=== PATIENT | female | born 1950 | race African-American/Black ===

== ENCOUNTER → 2016-08-05 | Outpatient (CLI) | payer MEDICARE ==
[~2016-08-05] MED LIST: AMIT50TA PO; DIAZ5TAB4 PO; GABA600T2 PO; OXYC-244 PO; TIZA4TAB PO
--- NOTE | 2016-08-05 09:50 | RAD ---
EXAM: Chest 2 views. HISTORY: Chest pain and wheezing. COMPARISON: None. FINDINGS: Frontal and lateral views of the chest are obtained. There are no confluent infiltrates. There is no pneumothorax or pleural effusion. The heart is not enlarged. IMPRESSION: 1. No confluent infiltrates.
--- NOTE | 2016-08-05 15:39 | CARD ---
APPROVED REPORT EXAM: Two-dimensional and M-mode echocardiogram with Doppler and color Doppler. Other Information Quality : GoodHR: 67bpm Rhythm : NSR INDICATION Dyspnea 2D DIMENSIONS RVDd1.9 (2.9-3.5cm)Left Atrium(2D)3.1 (1.6-4.0cm) IVSd0.7 (0.7-1.1cm)Aortic Root(2D)2.7 (2.0-3.7cm) LVDd4.2 (3.9-5.9cm)LVOT Diameter2.0 (1.8-2.4cm) PWd0.9 (0.7-1.1cm)LVDs3.0 (2.5-4.0cm) FS (%) 29.5 %SV45.9 ml LVEF(%)56.9 (>50%) Aortic Valve AoV Peak Nicolás.161.2cm/sAoV VTI32.3cm AO Peak GR.10.4mmHgLVOT Peak Nicolás.112.2cm/s AO Mean GR.5mmHgAVA (VMAX)2.27cm2 Mitral Valve MV E Iwlhqvwl07.5cm/sMV E Peak Gr.4mmHg MV DECEL [id number] A Agykhumr56.8cm/s MV E Mean Gr.2mmHgE/A Ratio1.0 MV A Tudrdhsu315ac Pulmonary Valve PV Peak Zbbqvuue832.4cm/s Tricuspid Valve TR P. Lefvhrkg750mk/sTR Peak Gr.24mmHg Pulmonary Vein S1 Ntwceldk81.4cm/sD2 Hbpdfusn60.5cm/s PVa [id number] LEFT VENTRICLE The left ventricle is normal size. There is normal left ventricular wall thickness. The left ventricu lar systolic function is normal. The Ejection Fraction is 55-60%. There is normal LV segmental wall m otion. The left ventricular diastolic function and filling is normal for age. RIGHT VENTRICLE The right ventricle is normal size. There is normal right ventricular wall thickness. The right ventr icular systolic function is normal. ATRIA The left atrium size is normal. The right atrium size is normal. The interatrial septum is intact wit h no evidence for an atrial septal defect or patent foramen ovale as noted on 2-D or Doppler imaging. AORTIC VALVE The aortic valve is mildly sclerotic. Doppler and Color Flow revealed no significant aortic regurgita tion. There is no significant aortic valvular stenosis. MITRAL VALVE Mitral annular calcification is mild. The mitral valve leaflets are thickened. There is no evidence o f mitral valve prolapse. There is no mitral valve stenosis. Doppler and Color Flow revealed trace leon ral regurgitation. TRICUSPID VALVE Doppler and Color Flow revealed trace tricuspid regurgitation. The pulmonary artery systolic pressure is estimated at 29 mmHg. There is no pulmonary hypertension. PULMONIC VALVE The pulmonary valve is normal in structure and function. Doppler and Color Flow revealed no pulmonic valvular regurgitation. There is no pulmonic valvular stenosis. GREAT VESSELS The aortic root is normal in size. The ascending aorta is normal in size. The pulmonary artery is nor mal. The IVC is normal in size and collapses >50% with inspiration. PERICARDIAL EFFUSION There is no evidence of significant pericardial effusion. Critical Notification Critical Value: No <Conclusion> The left ventricular systolic function is normal. The Ejection Fraction is 55-60%. There is normal LV segmental wall motion. Trace mitral regurgitation. Trace tricuspid regurgitation. The pulmonary artery systolic pressure is estimated at 29 mmHg. There is no evidence of significant pericardial effusion.
== END | disposition home or self-care (01) ==
LOC: ECHO 07:56
PROVIDERS: ATTEND Family Medicine
DX: I35.8 Other nonrheumatic aortic valve disorders (principal)
CPT/HCPCS: 71020; 93306

== ENCOUNTER → 2016-11-15 | Outpatient (CLI) | payer BC ==
[~2016-11-15] MED LIST changes: -OXYC-244 PO; +OXYC-327 PO
--- NOTE | 2016-11-15 17:30 | RAD ---
Indication injury one week previously. Rib pain. Films targeted to left and right ribs were obtained. Films of left ribs appear unremarkable. Films of right ribs also appear unremarkable. Calcified hilar lymph nodes are noted in each lung. IMPRESSION: Negative plain films of the ribs
== END | disposition home or self-care (01) ==
LOC: RAD 16:26
PROVIDERS: ATTEND Physician Assistant
DX: R07.81 Pleurodynia (principal); J98.4 Other disorders of lung; R07.1 Chest pain on breathing; W19.XXXA Unspecified fall, initial encounter; Y93.89 Activity, other specified; Y92.89 Other specified places as the place of occurrence of the external cause; Y99.8 Other external cause status
CPT/HCPCS: 71110

== ENCOUNTER → 2016-12-23 | Outpatient (CLI) | payer BC ==
[~2016-12-23] MED LIST changes: +IOHEXOL 240 MG/ML 50ML VIAL. PO ONE; +IOHEXOL 300 MG/ML 75 ML VIAL IV ONE
--- NOTE | 2016-12-23 16:28 | RAD ---
CT abdomen/pelvis with contrast 12/23/2016 at 1550 hours Indication: Upper abdominal pain. Comparison: None available Technique: Multiple axial CT images of the abdomen and pelvis were obtained after the administration of intravenous contrast. 75 mL's of Omnipaque 300 were administered. Coronal and sagittal reformats are provided. Oral contrast was administered. Findings: Lung bases are clear. Heart size is within normal limits. The liver enhances homogenously without evidence for a focal mass lesion. The spleen is normal. Bilateral adrenal glands are normal. The gallbladder is present without adjacent inflammatory changes. Pancreas is normal in appearance. No pancreatic ductal dilatation. No peripancreatic inflammatory changes. No intrahepatic or extrahepatic biliary ductal dilatation. The abdominal aorta is normal in course and caliber. IVC is patent. There are no enlarged lymph nodes in the abdomen or pelvis. There is no free intraperitoneal air. No free fluid within the abdomen or pelvis. The kidneys enhance symmetrically. There is no hydronephrosis. No contour deforming renal mass. Small and large bowel are normal in caliber. Appendix is not definitively visualized, however no inflammatory changes are noted in the right lower quadrant. No pericolonic inflammatory changes are present. Mild colonic diverticulosis without inflammatory changes to suggest diverticulitis. The urinary bladder is normal in appearance. No adnexal masses are identified. No suspicious osseous lesions are identified. Minimal anterolisthesis of L4 on L5, likely in a degenerative basis secondary to facet arthropathy. Impression: 1. No acute abnormality in the abdomen or pelvis. 2. Mild colonic diverticulosis without inflammatory changes to suggest diverticulitis. 3. Minimal anterolisthesis of L4 on L5, likely in a degenerative basis secondary to facet arthropathy. PQRS Compliance Statement: One or more of the following individualized dose reduction techniques were utilized for this examination: 1. Automated exposure control 2. Adjustment of the mA and/or kV according to patient size 3. Use of iterative reconstruction technique
== END | disposition home or self-care (01) ==
LOC: CT 14:11
PROVIDERS: ATTEND Family Medicine
DX: R10.10 Upper abdominal pain, unspecified (principal)
CPT/HCPCS: 74177; Q9966; Q9967

== ENCOUNTER → 2017-07-06 | Outpatient (CLI) | payer BC | END | disposition home or self-care (01) | LOC: KCIC DEXA 14:29 | DX: Z13.820 Encounter for screening for osteoporosis (principal); Z78.0 Asymptomatic menopausal state | CPT/HCPCS: 77080 ==

== ENCOUNTER → 2018-07-17 | Outpatient (CLI) | payer BC ==
[~2018-07-17] MED LIST changes: -GABA600T2 PO; +GABA600T7 PO; -IOHEXOL 240 MG/ML 50ML VIAL. PO ONE; -IOHEXOL 300 MG/ML 75 ML VIAL IV ONE; -OXYC-327 PO; +OXYC1TAB19 PO; -TIZA4TAB PO; +TIZA4TAB2 PO
--- NOTE | 2018-07-17 15:51 | RAD ---
DATE: 07/17/2018 EXAM: MAMMO YAZMIN SCREENING BILATERAL HISTORY: Routine screening COMPARISON: 12/12/2011, 12/19/2012, 01/16/2014, 04/10/2017 mammographic exams This study was interpreted with the benefit of Computerized Aided Detection (CAD). Breast Density: SCATTERED The breast parenchyma shows scattered fibroglandular densities. Breast parenchyma level B. FINDINGS: CC and MLO images of each breast were obtained. Tomosynthesis performed. Benign calcifications are present. No masses or distortion in the interval. IMPRESSION: Benign findings. BI-RADS CATEGORY: 2 BENIGN FINDING(S) RECOMMENDED FOLLOW-UP: 12M 12 MONTH FOLLOW-UP PQRS compliance statement: Patient information was entered into a reminder system with a target due date in one year for the next mammogram. Mammography is a sensitive method for finding small breast cancers, but it does not detect them all and is not a substitute for careful clinical examination. A negative mammogram does not negate a clinically suspicious finding and should not result in delay in biopsying a clinically suspicious abnormality. "Our facility is accredited by the [employer] Mammography Program."
== END | disposition home or self-care (01) ==
LOC: MAMMO 10:53
PROVIDERS: ATTEND Family Medicine
DX: Z12.31 Encounter for screening mammogram for malignant neoplasm of breast (principal)
CPT/HCPCS: 77063; 77067

== ENCOUNTER → 2018-10-01 | Outpatient (CLI) | payer BC ==
[~2018-10-01] MED LIST changes: +TIZA4TAB PO; -TIZA4TAB2 PO
--- NOTE | 2018-10-01 11:38 | KCIC ---
Left breast ultrasound: Reason for examination: Left breast lump with scab on the skin surface after picking at the skin. Ultrasound examination was performed in the area of clinical concern and at the left axilla. In the 11:30 position 16.5 cm from the nipple, there is a 9.9 x 4.4 mm hypoechoic lesion with echogenicity centrally. This appears to lie in the skin and would be consistent with a sebaceous cyst or ingrown hair follicle. No other focal breast lesions are seen. No abnormal appearing lymph nodes are seen in the left axilla. IMPRESSION: 9.9 mm lesion probably representing a sebaceous cyst or ingrown hair follicle at the 11:30 corresponding to the area of clinical concern. No other focal abnormality seen. Recommend further evaluation by dermatology. BI-RADS Category 2: Benign. "Our facility is accredited by the [employer] Mammography [employer]." This patient's information has been entered into a reminder system for the patient to be notified with the results of her examination and a target date for the next mammogram. Electronically signed by: Magda Cristina MD (10/01/2018 11:36 AM) [id number]
== END | disposition home or self-care (01) ==
LOC: KCIC US 10:25
PROVIDERS: ATTEND Internal Medicine
DX: N64.9 Disorder of breast, unspecified (principal)
CPT/HCPCS: 76641

== ENCOUNTER → 2019-12-31 | Outpatient (CLI) | payer BC ==
[~2019-12-31] MED LIST changes: +BARIUM SULFATE 40% (APPLE) 148 GM PWD. PO ONE; -TIZA4TAB PO; +TIZA4TAB2 PO
--- NOTE | 2019-12-31 14:52 | RAD ---
EXAM: Modified barium swallow. HISTORY: Dysphagia. FINDINGS: Barium contrast material was administered orally and multiple consistencies under the direction of speech pathology, and followed in its course during swallowing with video fluoroscopy. A fluoroscopic image and multiple videofluoroscopic clips were obtained. Fluoroscopy time 3.0 minutes. The radiologist was present for the entire imaging procedure. Flash laryngeal penetration was noted with liquid consistencies. There was no aspiration. Images of the more distal esophagus reveal moderate dilatation of the lower third of the esophagus. There was some delayed relaxation of the lower esophageal sphincter. On a few occasions, this lead to retention of material to the cervical esophagus. No persistent retention was visualized. IMPRESSION: 1. Dilatation of the lower esophagus with mildly delayed relaxation of the lower esophageal sphincter is consistent with mild achalasia. Gastroenterologic follow-up is suggested. 2. Flash laryngeal penetration without clear aspiration. Refer to the full report by speech pathology for more detail. Electronically signed by: Jayme Handy MD (12/31/2019 2:49 PM) [id number]
== END | disposition home or self-care (01) ==
LOC: RAD 13:24
PROVIDERS: ATTEND Family Medicine
DX: R13.19 Other dysphagia (principal); K59.8 Other specified functional intestinal disorders
CPT/HCPCS: 74230; 92526-GN; 92611-GN

== ENCOUNTER → 2020-04-07 | Outpatient (CLI) | payer BC ==
[~2020-04-07] MED LIST changes: -BARIUM SULFATE 40% (APPLE) 148 GM PWD. PO ONE
--- NOTE | 2020-04-07 17:15 | RAD ---
BILATERAL SCREENING MAMMOGRAM, 3-D History: Routine screening. Comparison: 07/17/2018, 04/10/2017, 01/20/2015, 01/16/2014. Technique: MLO and CC digital tomosynthesis (3D) images obtained. Radiologist reviewed these images on dedicated workstation. Findings: Breast Tissue Density B : There are scattered areas of fibroglandular density. There are no dominant masses, suspicious microcalcifications, or architectural distortion. IMPRESSION: No mammographic evidence of malignancy. Recommend routine screening. BI-RADS category 1: Negative. The images were reviewed with computer-aided detection. Patient information is entered into reminder system with a target due date for the next screening mammogram. Mammography is the most sensitive method for finding small breast cancers, but it does not detect them all and is not a substitute for careful clinical examination. A negative mammogram does not negate a clinically suspicious finding and should not result in delay in biopsying a clinically suspicious abnormality. "Our facility is accredited by the [employer] Mammography Program." Electronically signed by: Marcus Sutherland MD (04/07/2020 5:12 PM) [id number]
== END ==
LOC: MAMMO 11:10
PROVIDERS: ATTEND Family Medicine
DX: Z12.31 Encounter for screening mammogram for malignant neoplasm of breast (principal)
CPT/HCPCS: 77063; 77067

== ENCOUNTER 2020-08-07 16:20 | Emergency (ER) | payer BC ==
[~2020-08-07] VITALS: Ht 157.5 cm; Wt 225.0 kg
[2020-08-07] MEDS ORDERED: IV NORMAL SALINE 1000ML BAG 1,000 ML IV ONE (18:15)
--- NOTE | 2020-08-07 18:17 | PHYS DOC ---
General Adult EDM: Chief Complaint: OTHER COMPLAINTS HPI: HPI: Patient is a 70 year old female with a past medical history of fibromyalgia, hypertension, hyperlipidemia presents with the chief complaint of-- Left sided headache RIght shoulder pain. Insomnia Patient recently found out of a family member passing of a stroke Patient concern about stroke in relation to her left sided headache. Patient states she recently detoxed herself off of her fibromyalgia medications that she has been taking since the . Patient states she normally sleeps 7-10 hours a day. Over the last few nights she has only been able to sleep 3-4 hours a night. Patient without chest pain or shortness of breath. No focal weakness or slurred speech. Review of Systems: Review of Systems: Constitutional: Denies fever or chills. [] Eyes: Denies change in visual acuity. [] HENT: Denies nasal congestion or sore throat. [] Respiratory: Denies cough or shortness of breath. [] Cardiovascular: Denies chest pain or edema. [] GI: Denies abdominal pain, nausea, vomiting, bloody stools or diarrhea. [] : Denies dysuria. [] Musculoskeletal: Denies back pain or joint pain. [Positive SHOULDER PAIN] Integument: Denies rash. [] Neurologic: Positive headache, focal weakness or sensory changes. [Positive insomnia] Endocrine: Denies polyuria or polydipsia. [] Lymphatic: Denies swollen glands. [] Psychiatric: Denies depression or anxiety. [] Heart Score: Risk Factors: Risk Factors: DM, Current or recent (<one month) smoker, HTN, HLP, family history of CAD, obesity. Risk Scores: Score 0 - 3: 2.5% MACE over next 6 weeks - Discharge Home Score 4 - 6: 20.3% MACE over next 6 weeks - Admit for Clinical Observation Score 7 - 10: 72.7% MACE over next 6 weeks - Early Invasive Strategies Current Medications: Current Medications Medications (Trade) Dose Ordered Sig/Mona Start Time Stop Time Status Last Admin Dose Admin Sodium Chloride 1,000 ml @ 1,000 mls/hr 1X ONCE 08/07/20 18:15 08/07/20 19:14 Allergies: Allergies: Allergies Coded Allergies Type Severity Reaction Last Updated Verified Vvonxuv-Xbp-Mse Reductase Inhibitor Allergy Intermediate 03/28/16 Yes Physical Exam: PE: Constitutional: Well developed, well nourished, no acute distress, non-toxic appearance. [] HENT: Normocephalic, atraumatic, bilateral external ears normal, oropharynx moist, no oral exudates, nose normal. [] Eyes: PERRLA, EOMI, conjunctiva normal, no discharge. [] Neck: Normal range of motion, no tenderness, supple, no stridor. [] Cardiovascular:Heart rate regular rhythm, no murmur [] Lungs & Thorax: Bilateral breath sounds clear to auscultation [] Abdomen: Bowel sounds normal, soft, no tenderness, no masses, no pulsatile masses. [] Skin: Warm, dry, no erythema, no rash. [] Back: No tenderness, no CVA tenderness. [] Extremities: No tenderness, no cyanosis, no clubbing, ROM intact, no edema. [] Neurologic: Alert and oriented X 3, normal motor function, normal sensory function, no focal deficits noted. [] Psychologic: Affect normal, judgement normal, mood normal. [] Current Patient Data: Vital Signs: Vital Signs Date Time Temp Pulse Resp B/P (MAP) Pulse Ox O2 Delivery O2 Flow Rate FiO2 08/07/20 16:31 97.2 94 22 150/78 (102) 99 Room Air 97.2 EKG: EKG: [] Radiology/Procedures: Radiology/Procedures: [] Impression: 1. No acute intracranial hemorrhage. 2. Scattered regions of low attenuation within the white matter. Non-specific in nature but frequently secondary to chronic small vessel ischemic disease. 3. Prominence of ventricles and sulci which is frequently secondary to age related volume loss. Course & Med Decision Making: Course & Med Decision Making Pertinent Labs and Imaging studies reviewed. (See chart for details) [] Patient was evaluated for chief complaint. Work-up consisted of laboratory analysis and radiologic imaging. Results reviewed and discussed with patient and daughter. Labs within normal limits creatinine slightly elevated at 1.2 CT imaging shows no acute hemorrhage areas with small vessel disease. Treatment included 1 L normal saline. Patient was discharged home with instructions to follow-up with primary care physician. Bonnie Disclaimer: Bonnie Disclaimer: This electronic medical record was generated, in whole or in part, using a voice recognition dictation system. Departure Departure Impression: Primary Impression: Dehydration Additional Impressions: Insomnia Headache Disposition: 01 DC HOME SELF CARE/HOMELESS Condition: STABLE Referrals: SEUN LINDQUIST MD (PCP) Patient Instructions: Dehydration, Adult, General Headache Without Cause, Insomnia JENIFER ABBASI I DO Aug 07, 2020 18:17
[2020-08-07 18:31] LABS: BASO # 0.1 x10^3/uL (0.0-0.2); BASO % 1 % (0-3); EOS # 0.3 x10^3/uL (0.0-0.7); EOS % 5 % (0-3); HEMATOCRIT 37.6 % (36.0-47.0); HEMOGLOBIN 12.9 g/dL (12.0-15.5); LYMPH # 2.4 x10^3/uL (1.0-4.8); LYMPH % 31 % (24-48); MEAN CORPUSCULAR HEMOGLOBIN 30 pg (25-35); MEAN CORPUSCULAR HGB CONC 34 g/dL (31-37); MEAN CORPUSCULAR VOLUME 89 fL (79-100); MONO # 0.9 x10^3/uL (0.0-1.1); MONO % 12 % (0-9); NEUT # 3.8 x10^3/uL (1.8-7.7); NEUT % 51 % (31-73); PLATELET COUNT 292 x10^3/uL (140-400); RED BLOOD COUNT 4.23 x10^6/uL (3.50-5.40); WHITE BLOOD COUNT 7.5 x10^3/uL (4.0-11.0)
[2020-08-07 18:41] LABS: CALCIUM 9.2 mg/dL (8.5-10.1); CREATININE 1.2 mg/dL (0.6-1.0); GFR 53.9; POTASSIUM 4.3 mmol/L (3.5-5.1)
[2020-08-07 18:46] LABS: ALBUMIN 3.8 g/dL (3.4-5.0); ALBUMIN/GLOBULIN RATIO 0.9 (1.0-1.7); TOTAL BILIRUBIN 0.4 mg/dL (0.2-1.0); TOTAL PROTEIN 7.9 g/dL (6.4-8.2)
--- NOTE | 2020-08-07 18:55 | RAD ---
INDICATION: Reason: headache / Spl. Instructions: / History: COMPARISON: None. TECHNIQUE: Axial CT images obtained through the head without intravenous contrast. One or more of the following individualized dose reduction techniques were utilized for this examinat ion: 1. Automated exposure control; 2. Adjustment of the mA and/or kV according to patient size; 3 . Use of iterative reconstruction technique. FINDINGS: No intracranial hemorrhage. No midline shift. Basal cisterns patents. Ventricles and sulci are globally prominent. No acute osseous abnormality. Orbits and paranasal sinuses unremarkable. Scattered foci of low attenuation within the white matter. IMPRESSION: 1. No acute intracranial hemorrhage. 2. Scattered regions of low attenuation within the white matter. Non-specific in nature but frequen tly secondary to chronic small vessel ischemic disease. 3. Prominence of ventricles and sulci which is frequently secondary to age related volume loss. Electronically signed by: Enrique Suarez MD (08/07/2020 6:53 PM) [id number]
[2020-08-07 20:12] VITALS: BP 164/72
== END 2020-08-07 20:35 | disposition home or self-care (01) ==
LOC: ER 16:20
DX: E86.0 Dehydration (principal); G47.00 Insomnia, unspecified; R51.9 Headache, unspecified; M25.511 Pain in right shoulder; I10 Essential (primary) hypertension; E78.5 Hyperlipidemia, unspecified; Z86.73 Personal history of transient ischemic attack (TIA), and cerebral infarction without residual deficits; Z91.041 Radiographic dye allergy status
CPT/HCPCS: 36415; 70450; 80053; 84484; 85025; 96360; 96361; 99284; J7030

== ENCOUNTER → 2021-03-25 | Outpatient (CLI) | payer BC ==
--- NOTE | 2021-03-25 16:42 | RAD ---
Bilateral screening mammogram with tomography dated 03/25/2021. INDICATION: 71 years of age asymptomatic female patient presents for screening mammography. Screening TECHNIQUE: Full field craniocaudal and mediolateral oblique images of both breasts were obtained usi ng digital technique with tomosynthesis and also analyzed with computer-aided detection software. . COMPARISON: 04/07/2020 and 07/17/2018. BREAST COMPOSITION: Category B: There are scattered fibroglandular densities. FINDINGS: Somewhat vague nodular focus within the 12:00 left breast is unchanged from prior study. No new mass or suspicious clustered calcification. No architectural distortion. IMPRESSION: Stable bilateral mammogram. RECOMMENDATION: Annual screening mammography is recommended, unless clinically indicated sooner based on symptoms or change in physical exam. BIRADS 2: BENIGN This study was interpreted with the benefit of Computerized Aided Detection (CAD). Recommend follow-up screening mammogram in one year. Patient information is entered into the reminder system with a target due date for the next screening mammogram. Mammography is the most sensitive method for finding small breast cancers, but it does not detect the m all and is not a substitute for careful clinical examination. A negative mammogram does not negate a clinically suspicious finding and should not result in delay in biopsying a clinically suspicious a bnormality. "Our facility is accredited by the [employer] Mammography Program." Electronically signed by: Lavelle Barksdale MD (03/25/2021 4:40 PM) [id number]
== END ==
LOC: MAMMO 15:36
PROVIDERS: ATTEND Family Medicine
DX: Z12.31 Encounter for screening mammogram for malignant neoplasm of breast (principal); N63.42 Unspecified lump in left breast, subareolar
CPT/HCPCS: 77063; 77067